=== PATIENT | female | born 1985 | race Two or more races ===

== ENCOUNTER 2016-12-25 02:25 | Emergency (ER) | payer MEDICAID, OTHER ==
[~2016-12-25] VITALS: Ht 170.2 cm; Wt 81.6 kg
[2016-12-25 02:33] VITALS: BP 161/78
[2016-12-25] MEDS ORDERED: LORAZEPAM 1 MG TABLET ONE (02:36)
[2016-12-25] MEDS ORDERED: LORAZEPAM 1 MG TABLET PO ONE (03:00)
== END 2016-12-25 04:10 | disposition home or self-care (01) ==
LOC: ER 02:26
DX: T40.7X1A Poisoning by cannabis (derivatives), accidental (unintentional), initial encounter (principal); Y92.89 Other specified places as the place of occurrence of the external cause
CPT/HCPCS: 99283; A4606; Z7610